=== PATIENT | female | born 1955 | race Caucasian/White ===

== ENCOUNTER 2018-11-26 08:25 | Emergency (ER) | payer BC, OTHER ==
[~2018-11-26] VITALS: Ht 162.6 cm; Wt 67.1 kg
[2018-11-26 08:30] VITALS: BP_SYST 160
[2018-11-26 09:15] VITALS: BP_SYST 144
== END 2018-11-26 09:13 | disposition home or self-care (01) ==
LOC: SED 08:25
DX: N39.0 Urinary tract infection, site not specified (principal); I10 Essential (primary) hypertension
CPT/HCPCS: 81002; 99283